=== PATIENT | female | born 1985 | race Caucasian/White ===

== ENCOUNTER → 2017-06-08 | Outpatient (CLI) | payer OTHER | END | disposition home or self-care (01) | LOC: RAD 11:22 | PROVIDERS: ATTEND Family Medicine | DX: N83.9 Noninflammatory disorder of ovary, fallopian tube and broad ligament, unspecified (principal); N85.9 Noninflammatory disorder of uterus, unspecified | CPT/HCPCS: 76856 ==

== ENCOUNTER → 2017-08-09 | Outpatient (CLI) | payer OTHER ==
[~2017-08-09] MED LIST: CEFAZOLIN 1,000 MG ONE; DEXAMETHASONE 4 MG/ML, 1ML ONE; FENTANYL PF 250 MCG/5ML ONE; GLYCOPYRROLATE 0.2MG/1ML, 5ML ONE; MIDAZOLAM 1 MG/ML, 2ML ONE; NEOSTIGMINE 1 MG/ML, 10ML ONE; NONE PER PT; ONDANSETRON 2MG/ML, 2ML ONE; PROPOFOL 10 MG/ML, 20ML ONE; ROCURONIUM 10 MG/ML,10ML ONE; SUCCINYLCHOLINE 20 MG/ML, 10ML ONE
== END ==
LOC: STAR 12:00
PROVIDERS: ATTEND Obstetrics & Gynecology Female Pelvic Medicine and Reconstructive Surgery
DX: Z02.9 Encounter for administrative examinations, unspecified (principal)

== ENCOUNTER 2017-08-13 10:22 | Day surgery (SDC) | payer OTHER ==
[~2017-08-13] VITALS: Ht 172.7 cm; Wt 71.1 kg
[~2017-08-13 10:22] MED LIST changes: -CEFAZOLIN 1,000 MG ONE; -DEXAMETHASONE 4 MG/ML, 1ML ONE; -FENTANYL PF 250 MCG/5ML ONE; -GLYCOPYRROLATE 0.2MG/1ML, 5ML ONE; -MIDAZOLAM 1 MG/ML, 2ML ONE; -NEOSTIGMINE 1 MG/ML, 10ML ONE; -ONDANSETRON 2MG/ML, 2ML ONE; -PROPOFOL 10 MG/ML, 20ML ONE; -ROCURONIUM 10 MG/ML,10ML ONE; -SUCCINYLCHOLINE 20 MG/ML, 10ML ONE
[2017-08-13] MEDS ORDERED: LACTATED RINGERS 1,000 ML IV SCH ×2 (10:54→16:59)
[2017-08-13 11:12] LABS: HCG UR SG 1.017 (1.003-1.030)
[2017-08-13 11:16] VITALS: BP 100/68
[2017-08-13] MEDS ORDERED: SCOPOLAMINE PATCH, 1.5MG PATCH.TD72 TD ONE (14:52)
[2017-08-13] MEDS ORDERED: BUPIVACAINE/PF 0.25% ONE (14:59)
[2017-08-13] MEDS ORDERED: EPINEPHRINE 1 MG/ML, 1ML ONE (14:59)
[2017-08-13] MEDS ORDERED: SCOPOLAMINE 1MG PATCH TD ONE (15:00)
[2017-08-13] MEDS ORDERED: FENTANYL PF 100 MCG/2ML ONE (15:11)
[2017-08-13] MEDS ORDERED: CEFAZOLIN 1,000 MG ONE (15:11)
[2017-08-13] MEDS ORDERED: KETOROLAC 30 MG/1 ML ONE (15:11)
[2017-08-13] MEDS ORDERED: NEOSTIGMINE 1 MG/ML, 10ML ONE (15:11)
[2017-08-13] MEDS ORDERED: ROCURONIUM 10 MG/ML,10ML ONE (15:11)
[2017-08-13] MEDS ORDERED: GLYCOPYRROLATE 0.2MG/1ML, 5ML ONE (15:11)
[2017-08-13] MEDS ORDERED: ONDANSETRON 2MG/ML, 2ML ONE (15:11)
[2017-08-13] MEDS ORDERED: SUCCINYLCHOLINE 20 MG/ML, 10ML ONE (15:11)
[2017-08-13] MEDS ORDERED: DEXAMETHASONE 4 MG/ML, 1ML ONE (15:11)
[2017-08-13] MEDS ORDERED: MIDAZOLAM 1 MG/ML, 2ML ONE (15:11)
[2017-08-13] MEDS ORDERED: VASOPRESSIN 20 UNIT/ML, 1ML ONE (15:43)
[2017-08-13] MEDS ORDERED: BUPIVACAINE/PF-EPI 0.25% 1:200K INFIL ONE (15:57)
[2017-08-13] MEDS ORDERED: FENTANYL PF 100 MCG/2ML IV PRN (16:00)
[2017-08-13] MEDS ORDERED: ACETAMINOPHEN 325 MG TABLET PO PRN (16:00)
[2017-08-13] MEDS ORDERED: ALBUTEROL SULFATE 2.5 MG/3 ML NPPB PRN (16:00)
[2017-08-13] MEDS ORDERED: LORazepam 2 MG/ML, 1ML IVPush PRN (16:00)
[2017-08-13] MEDS ORDERED: MEPERIDINE/PF 25MG/0.5ML IVPush PRN (16:00)
[2017-08-13] MEDS ORDERED: LABETALOL 5MG/ML, 20ML IV PRN (16:00)
[2017-08-13] MEDS ORDERED: hydrALAzine 20 MG/ML, 1ML IV PRN (16:00)
[2017-08-13] MEDS ORDERED: OXYcodone 5 MG/5 ML ORAL.SOL UDC PO PRN ×2 (16:00→17:00)
[2017-08-13] MEDS ORDERED: PROMETHAZINE 25 MG/ML, 1ML IV PRN (16:00)
[2017-08-13] MEDS ORDERED: INTERCEED 3 X 4 INCH DRESSING ONE (16:01)
[2017-08-13] MEDS ORDERED: IBUPROFEN 600 MG TABLET PO PRN (17:00)
[2017-08-13] MEDS ORDERED: ONDANSETRON 2MG/ML, 2ML IVPush PRN (17:00)
[2017-08-13] MEDS ORDERED: OXYcodone/APAP 5/325MG TABLET PO PRN (17:00)
[2017-08-13] MEDS ORDERED: PROMETHAZINE 12.5 MG SUPP PR ONE (17:00)
[2017-08-13] MEDS: HYDROmorphone 1 MG/ML, 1ML IV PRN ×2 (17:02→17:12)
[2017-08-13] MEDS ORDERED: ACETAMINOPHEN 650 MG/20.3 ML UDC ONE (17:08)
[2017-08-13] MEDS ORDERED: OXYcodone 5 MG/5 ML ORAL.SOL UDC ONE (17:08)
[2017-08-13] MEDS ORDERED: HYDROmorphone 2 MG/ML, 1ML ONE (17:08)
[2017-08-13] MEDS ORDERED: MEPERIDINE/PF 50 MG/ML ONE (17:36)
== END 2017-08-13 21:10 | disposition home or self-care (01) ==
LOC: OUT 10:22 → 4NOR 18:22 → OUT 21:10
PROVIDERS: ATTEND Obstetrics & Gynecology Female Pelvic Medicine and Reconstructive Surgery
DX: D25.2 Subserosal leiomyoma of uterus (principal); N80.1 Endometriosis of ovary; N94.6 Dysmenorrhea, unspecified; N92.3 Ovulation bleeding; N92.0 Excessive and frequent menstruation with regular cycle; D64.9 Anemia, unspecified; Z88.5 Allergy status to narcotic agent; Z87.442 Personal history of urinary calculi; Z90.49 Acquired absence of other specified parts of digestive tract; Z98.890 Other specified postprocedural states; Z88.8 Allergy status to other drugs, medicaments and biological substances
CPT/HCPCS: 58545; 58662; 81025; 88305; C1760; J0171; J0330; J0690; J1100; J1170; J1885; J2175; J2250; J2405; J2710; J3010; J3490; J7120; J2704